=== PATIENT | male | born 1995 ===

== ENCOUNTER 2021-10-11 17:50 | Emergency (ER) | payer OTHER ==
[~2021-10-11] VITALS: Ht 180.3 cm; Wt 109.8 kg
[~2021-10-11 17:50] MED LIST: BIAXIN250 MG PO; KETO10TA2 PO
[2021-10-11] MEDS ORDERED: CLEOCIN HCL300 MG PO (20:06)
== END 2021-10-11 20:16 | disposition home or self-care (01) ==
LOC: ER 17:50
DX: H66.91 Otitis media, unspecified, right ear (principal); H72.91 Unspecified perforation of tympanic membrane, right ear